=== PATIENT | female | born 1945 ===

== ENCOUNTER → 2018-08-21 | Outpatient (REF) | payer MEDICARE, OTHER ==
[2018-08-21 13:06] LABS: HEMATOCRIT 41.3 % (36.0-47.0)
[2018-08-21 13:13] LABS: CALCIUM LEVEL 8.9 MG/DL (8.8-10.2); CHOLESTEROL RISK RATIO 3.035 (<5); CREATININE FOR GFR 1.1 MG/DL (0.55-1.30); MAGNESIUM LEVEL 2.2 MG/DL (1.8-2.4); POTASSIUM SERUM 4.5 MEQ/L (3.5-5.1)
== END ==
LOC: M LABDRAWC 11:49
DX: I10 Essential (primary) hypertension (principal); K21.9 Gastro-esophageal reflux disease without esophagitis; E78.00 Pure hypercholesterolemia, unspecified

== ENCOUNTER → 2018-09-11 | Outpatient (REF) | payer MEDICARE, OTHER ==
[2018-09-11 17:33] LABS: ALBUMIN 3.8 GM/DL (3.2-5.2); ALT/SGPT 20 U/L (12-78); BILIRUBIN,TOTAL 0.2 MG/DL (0.2-1.0); BLOOD UREA NITROGEN 22 MG/DL (7-18); CALCIUM LEVEL 8.4 MG/DL (8.8-10.2); CARBON DIOXIDE LEVEL 26 MEQ/L (21-32); CHLORIDE LEVEL 102 MEQ/L (98-107); CREATININE FOR GFR 1.08 MG/DL (0.55-1.30); FREE T4 0.94 NG/DL (0.76-1.46); GLOMERULAR FILTRATION RATE 53.1 (>39); GLUCOSE, FASTING 101 MG/DL (70-100); POTASSIUM SERUM 4.8 MEQ/L (3.5-5.1); SODIUM LEVEL 137 MEQ/L (136-145); TOTAL PROTEIN 7.8 GM/DL (6.4-8.2)
[2018-09-15 11:51] LABS: ALBUMIN 4.32 GM/DL (3.29-5.55); ALBUMIN % 55.4 % (55.8-66.1); ALPHA-1-GLOBULIN % 3.4 % (2.9-4.9); ALPHA-1-GLOBULINS 0.27 GM/DL (0.17-0.41); ALPHA-2-GLOBULINS 0.77 GM/DL (0.42-0.99); ALPHA-2-GLOBULINS % 9.9 % (7.1-11.8); BETA-1-GLOBULINS 0.56 GM/DL (0.28-0.60); BETA-1-GLOBULINS % 7.2 % (4.7-7.2); BETA-2-GLOBULINS 0.64 GM/DL (0.19-0.55); BETA-2-GLOBULINS % 8.2 % (3.2-6.5); GAMMA GLOBULIN % 15.9 % (11.1-18.8); GAMMA GLOBULINS 1.24 GM/DL (0.65-1.58)
== END ==
LOC: M LAB REF 16:48
PROVIDERS: ATTEND Internal Medicine
DX: G60.9 Hereditary and idiopathic neuropathy, unspecified (principal)